=== PATIENT | male | born 1965 | race Two or more races ===

== ENCOUNTER 2024-01-08 17:40 | Emergency (ER) | payer BC ==
[~2024-01-08] VITALS: Ht 172.7 cm; Wt 90.7 kg
[2024-01-08] MEDS ORDERED: NEXIUM 24HR20 MG (18:10)
[2024-01-08] MEDS ORDERED: LIPITOR40 M1 (18:10)
[2024-01-08] MEDS ORDERED: OMEPRAZOLE MAGN20 MG (18:11)
[2024-01-08] MEDS ORDERED: 0.9 % SODIUM CHLORIDE 1,000 ML IV STA (18:38)
[2024-01-08] MEDS ORDERED: ONDANSETRON HCL 2 MG/ML VIAL IV STA (18:38)
[2024-01-08] MEDS ORDERED: MEPERIDINE HCL/PF 50 MG/ML VIAL IM ONE (18:45)
[2024-01-08] MEDS ORDERED: TAMSULOSIN HCL 0.4 MG CAP PO ONE (18:45)
[2024-01-08 18:56] LABS: HEMATOCRIT 37.2 % (39.0-48.0); HEMOGLOBIN 13.2 g/dL (13-16.00); MEAN CELL VOLUME 81.1 fL (80.0-100.00); MEAN CORPUSCULAR HEMOGLOBIN 28.9 pg (27.00-32.0); MEAN CORPUSCULAR HGB CONC 35.6 g/dl (32.0-36.0); PLATELET COUNT 242 K/uL (150-450); RED BLOOD COUNT 4.59 M/uL (4.00-6.00); RED CELL DISTRIBUTION WIDTH 14.7 % (11.5-14.5)
[2024-01-08 20:27] LABS: PH,URINE 5.5 (5.0-8.0); URINE APPEARANCE Turbid; URINE BILIRRUBIN Small (NEGATIVE); URINE BLOOD Large; URINE COLOR Orange; URINE GLUCOSE Negative (NEGATIVE); URINE KETONE Trace (NEGATIVE); URINE LEUKOCYTE Small; URINE NITRATE Negative
[2024-01-08 20:31] LABS: URINE BACTERIA 81.8 uL (0.0-1933); URINE CAST 3.81 uL (0.0-1.40); URINE EPITHELIAL CELLS 7.2 uL (0.0-38.8); URINE WBC 29.5 uL (0.0-23.2)
[2024-01-08 20:51] LABS: URINE CRYSTALS FEW /HPF; URINE PROTEIN 100 (NEGATIVE)
== END 2024-01-08 21:39 | disposition home or self-care (01) ==
LOC: ER 17:42
PROVIDERS: Emergency Medicine
DX: N23 Unspecified renal colic (principal); I10 Essential (primary) hypertension